=== PATIENT | female | born 1950 | race Hispanic/Latino ===

== ENCOUNTER → 2024-06-10 | Outpatient (CLI) | payer OTHER, MEDICARE ==
--- NOTE | 2024-06-10 16:14 | HMCSR ---
APPROVED REPORT EXAM: Two-dimensional and M-mode echocardiogram with Doppler and color Doppler. INDICATION ICD: Murmur 2D Dimensions RVDd4.2 cmLVEF(%)62.3 (>50%)LVED Vol(simp.)103.0 mL IVSd1.0 (0.7-1.1cm)FS(%)33 %LVES Vol(simp.)38.8 mL LVDd4.2 (3.8-5.6cm)LA (2D)3.9 (1.6-4.0cm)LVEF(%, simp.)62 % PWd0.9 (0.7-1.1cm)Ao Root(2D)3.0 (2.0-3.7cm)LA ESV INDEX (4CH)36.00 mL/m2 IVSs1.2 cmLVOT diam2.0 (1.8-2.4cm)LA ESV INDEX (2CH)31.40 mL/m2 LVDs2.8 (2.5-4.0cm)IVC diam2.0 cmLA ESV INDEX (BP)33.70 mL/m2 PWs1.3 cm Aortic Valve AoV VTI0.4 mAo Mean GR6.0 mmHgLVOT VTI0.24 m MARLON (VMAX)1.8 cm2AVA (VTI) 1.8 cm2 Mitral Valve MV E Xaaq524.3 cm/sDECEL Hret953 ms MV A Vmax80.5 cm/sP 1/2 T59 ms E/A ratio1.3MVA (PHT)3.7 cm2 MR Max PG36 mmHg TDI E/E' Xuqost65.0E/E' Xgkwndt70.9 Medial E' Peak V5.80 cm/sLateral E' Peak V7.50 cm/s Medial A' Peak V7.10 cm/sLateral A' Peak V9.60 cm/s Medial E'/A'0.8Lateral E'/A' 0.8 Pulmonary Valve PV VTI0.22 mPV Mean GR2 mmHg Tricuspid Valve TR Vmax2.4 m/sRAP (EST) 3 kbCrZYXX68.6 mmHg TR Peak GR22.6 mmHg Left Ventricle The left ventricle chamber size is normal. There is normal LV segmental wall motion. There is normal left ventricular wall thickness. LVEF is 60-65%. Stage II diastolic dysfunction. Right Ventricle The right ventricle is borderline dilated at 4.2 cm. The right ventricular systolic function is mana l. TAPSE is normal 2.3 cm. Atria The left atrium size is mildly dilated with an LA ESV index of 36 mL/m. The right atrium size is nor mal. Aortic Valve The aortic valve is trileaflet with trivial sclerosis. No aortic regurgitation is present. There is n o aortic valvular stenosis. Mitral Valve The mitral valve is normal in structure. There is no evidence of significant mitral regurgitation. Th ere is no mitral valve stenosis. Tricuspid Valve The tricuspid valve is normal in structure. There is mild tricuspid valve regurgitation noted. Pulmonic Valve The pulmonary valve is normal in structure. There is no pulmonic valvular regurgitation. Great Vessels The aortic root is normal in size. The IVC is normal in size and collapses >50% with inspiration. Pericardium There is no pericardial effusion. Other Information Quality : Good Conclusion The left atrium size is mildly dilated with an LA ESV index of 36 mL/m. The left ventricle chamber size is normal. There is normal left ventricular wall thickness. There is normal LV segmental wall motion. LVEF is 60-65%. Stage II diastolic dysfunction. The aortic valve is trileaflet with trivial sclerosis. There is no aortic valvular stenosis. There is no evidence of significant mitral regurgitation. There is mild tricuspid valve regurgitation noted. There is no pericardial effusion.
== END | disposition home or self-care (01) ==
LOC: RAH 13:45
PROVIDERS: ATTEND Internal Medicine
DX: I08.2 Rheumatic disorders of both aortic and tricuspid valves (principal); R01.1 Cardiac murmur, unspecified
CPT/HCPCS: 93306